=== PATIENT | male | born 1945 | race Caucasian/White ===

== ENCOUNTER → 2025-01-27 11:55 | Outpatient (REF) | payer MEDICARE, SELFPAY | LOC: RCS 11:55 | PROVIDERS: ATTENDING PHYSICIAN Internal Medicine Cardiovascular Disease; FAMILY PHYSICIAN Family Medicine | DX: I48.21 Permanent atrial fibrillation (principal); I35.0 Nonrheumatic aortic (valve) stenosis | CPT/HCPCS: 93306 ==